=== PATIENT | male | born 1950 | race Caucasian/White ===

== ENCOUNTER → 2017-02-22 | Outpatient (CLI) | payer MEDICARE ==
--- NOTE | 2017-02-23 10:46 | EKG ---
Date Performed: 02/22/2017 Time Performed: 13:17:56 PTAGE: 66 years EKG: Sinus bradycardia. Anterior infarct - age undetermined Abnormal ECG PREVIOUS TRACING : 07/09/2007 13.35 DOCTOR: David Jane Interpretating Date/Time 02/23/2017 10:45:00
== END ==
LOC: HCAV 13:07
PROVIDERS: ATTEND Family Medicine
DX: R42 Dizziness and giddiness (principal)
CPT/HCPCS: 93005